=== PATIENT | male | born 1935 | race African-American/Black ===

== ENCOUNTER 2022-04-11 11:56 | Inpatient (IN) | payer MEDICARE ==
[~2022-04-11] VITALS: Ht 182.9 cm; Wt 85.3 kg
[2022-04-11] VITALS (10 sets, daily range): BP systolic 7–132
--- NOTE | 2022-04-11 11:56 | NUR ---
CODE EVERARDO CALLED AT 1154, SEE CODE SHEET FOR NOTES
[2022-04-11] MEDS ORDERED: SUCCINYLCHOLINE CHLORIDE 20 MG/ML(QUELICIN) ONE (12:00)
[2022-04-11] MEDS ORDERED: AMIODARONE HCL 150 MG/3ML VIAL ONE (12:00)
[2022-04-11] MEDS ORDERED: CALCIUM CHLORIDE 1 GM/10 ML DISP.SYRIN (14 mEq Ca++/SYR) ONE (12:00)
[2022-04-11] MEDS ORDERED: ATROPINE SULFATE 1 MG/10 ML SYRINGE IVP ONE (12:00)
[2022-04-11] MEDS ORDERED: EPINEPHrine JECT 0.1 MG/ML SYR ONE (12:00)
[2022-04-11] MEDS ORDERED: DEXTROSE 50% JECT 50 ML DISP.SYRIN ONE (12:00)
[2022-04-11] MEDS ORDERED: NS 1000 ML IV.SOLN IV ONE (12:00)
[2022-04-11] MEDS ORDERED: SODIUM BICARBONATE 8.4% JECT 50 MEQ/50 ML SYRINGE ONE ×2 (12:00→17:53)
[2022-04-11] MEDS ORDERED: DOPamine PREMIX 400 MG/250 ML BTL IV ONE (12:00)
[2022-04-11] MEDS ORDERED: ETOMIDATE 20 MG/ 10 ML VIAL (AMIDATE) ONE (12:00)
--- NOTE | 2022-04-11 12:00 | NUR ---
BROUGHT IN BY [facility], PLACED IN BED #5 AND TRIAGE STARTED. DURING TRIAGE, PT BECAME UNRESPONSIVE AND ALL STAFF CALLED TO BEDSIDE. LJ MCGEE CALLED AND DR NELSON AT BEDSIDE WITH RT, LAB AND PHARMACY.
--- NOTE | 2022-04-11 12:26 | NUR ---
FAXED EKG TO [facility] ER PER DR. NELSON
[2022-04-11] MEDS ORDERED: NOREPINEPHRINE BITARTRATE 4 MG in NS 246 ML IV ONE (12:45)
[2022-04-11 13:04] LABS: BASOPHILS % (AUTO) 0.9 % (0.0-2.0); EOSINOPHILS # (AUTO) 0.1 K/uL (0.0-0.4); EOSINOPHILS % (AUTO) 0.9 % (0.0-4.0); HEMATOCRIT 33.8 % (36-54); HEMOGLOBIN 10.5 g/dL (14.0-18.0); LYMPHOCYTES # (AUTO) 2.5 K/uL (1.0-5.5); LYMPHOCYTES % (AUTO) 45.1 % (20.5-51.5); MEAN CORPUSCULAR HEMOGLOBIN 27 pg (27-31); MEAN CORPUSCULAR HGB CONC 31 % (32-36); MEAN CORPUSCULAR VOLUME 86 fL (79.0-98.0); MONOCYTES # (AUTO) 0.1 K/uL (0.0-1.0); MONOCYTES % (AUTO) 2.4 % (1.7-9.3); NEUTROPHILS # (AUTO) 2.8 K/uL (1.8-7.7); NEUTROPHILS % (AUTO) 50.7 % (40.0-70.0); PLATELET COUNT (AUTO) 106 K/uL (130-430); RED BLOOD CELL COUNT(AUTO) 3.92 MIL/uL (4.2-6.2); RED CELL DISTRIBUTION WIDTH 16.5 % (9.0-15.0); WHITE BLOOD COUNT (AUTO) 5.5 K/uL (4.8-10.8)
[2022-04-11 13:20] LABS: ANION GAP 21 (5-15); CALCIUM 9.8 mg/dL (8.4-11.0); CHLORIDE 102 mmol/L (98-107); CREATININE 1.59 mg/dL (0.55-1.30); GLUCOSE 397 mg/dL (70-99); UREA NITROGEN, BLOOD 16 mg/dL (8-21)
[2022-04-11 13:27] LABS: ALANINE AMINOTRANSFERASE 505 U/L (12-78); ALBUMIN 2.9 g/dL (3.4-4.8); ASPARTATE AMINOTRANSFERASE 344 U/L (10-37); TOTAL BILIRUBIN 0.6 mg/dL (0.0-1.0)
[2022-04-11] MEDS ORDERED: DOPamine PREMIX 250 ML IV ONE (13:30)
--- NOTE | 2022-04-11 13:34 | NUR ---
DR NELSON OUT TO TRIAGE ROOM TO SPEAK WITH FAMILY.
[2022-04-11] MEDS ORDERED: iohexoL 350 mgI/mL, 100 ML INFUS..BTL IV ONE (13:45)
[2022-04-11] MEDS ORDERED: NOREPINEPHRINE 4 MG/4 ML VIAL IV ONE ×3 (14:01→16:12)
--- NOTE | 2022-04-11 14:32 | NUR ---
FAMILY BROUGHT INTO ER TO SEE PT. ALL QUESTIONS ANSWERED AND EXPLAINED.
--- NOTE | 2022-04-11 15:00 | NUR ---
# 20 FR León catheter with use of sterile technique. Immediate return of 25 cc YELLOW urine noted. Bedside drainage bag placed below level of bladder. Urine sample collected and sent to lab. Pt tolerated procedure WELL. Patient unable to toilet self.
[2022-04-11] MEDS ORDERED: NOREPINEPHRINE BITARTRATE 8 MG in NS 246 ML IV ONE (15:15)
--- NOTE | 2022-04-11 15:25 | NUR ---
DR HIDALGO INFORMED OF PT'S BP 73/46, CURRENTLY MAXED OUT ON LEVOPHED AND DOPAMINE. WAITING ON FURTHER ORDERS.
[2022-04-11] MEDS ORDERED: VASOPRESSIN 20 UNITS in NS 99 ML IV PRN ×2 (15:45→17:30)
--- NOTE | 2022-04-11 16:00 | NUR ---
Physician marked site for placement. Time out performed with all staff involved just prior to placement. RIGHT side chest cleansed with BETADINE per physician.# 28 FR chest tube placed to RIGHT side chest per DR. NELSON. Tubing sutured in place. Tubing taped to chest wall. Pleuravac connected to chest tube. BLOODY drainage noted to tubing. Pleuravac secured to floor with tape. Lung sounds auscultated over RIGHT chest wall. O2 sats 100% per pulse ox. Patient tolerated procedure WELL. PCXR done at bedside.
[2022-04-11] MEDS ORDERED: cefTRIAXone 2 GM VIAL ONE (16:12)
--- NOTE | 2022-04-11 16:22 | NUR ---
DR. MARROQUIN, [facility], CALLED BACK TO SPEAK TO DR. HICKS REGARDING PT STATUS.
[2022-04-11] MEDS ORDERED: ALBUMIN HUMAN 25% 100 ML IV ONE ×2 (16:25→16:30)
[2022-04-11] MEDS ORDERED: NACL 0.9% 1,000 ML IV ONE ×2 (16:30→17:00)
--- NOTE | 2022-04-11 16:30 | NUR ---
LATE ENTRY: RIGHT TRIPLE LUMEN CENTRAL LINE INSERTED BY DR HIDALGO WITH STERILE TECHNIQUE. CONFIRMED BY XRAY.
--- NOTE | 2022-04-11 16:35 | NUR ---
400ML BLOODY DRAINAGE FROM CHEST TUBE
[2022-04-11] MEDS ORDERED: DEXTROSE 50% JECT 50 ML DISP.SYRIN IVP PRN (16:45)
[2022-04-11] MEDS ORDERED: PROPOFOL DRIP 100 ML IV ONE (16:56)
[2022-04-11] MEDS ORDERED: *HEPARIN PER PHARMACY XX ONE (17:00)
[2022-04-11] MEDS ORDERED: PIPERACILLIN/TAZO 3.375 GM in NS 50 ML IV ONE (17:00)
[2022-04-11] MEDS: PROPOFOL DRIP 100 ML IV PRN (17:04)
[2022-04-11] MEDS ORDERED: HEPARIN SODIUM,PORCINE 3000 UNITS/0.6 ML BOLUS IVP PRN (17:15)
[2022-04-11] MEDS ORDERED: HEPARIN SODIUM,PORCINE 2000 UNITS/0.4 ML BOLUS IVP PRN (17:15)
[2022-04-11] MEDS ORDERED: HEPARIN 25,000 UNITS in 250 ML PREMIX IV PRN (17:15)
[2022-04-11] MEDS ORDERED: HEPARIN SODIUM,PORCINE 5,000 UNITS/ML VIAL IV ONE (17:15)
--- NOTE | 2022-04-11 17:22 | NUR ---
pt arrived @ 1722 connected to monitor with CORA, LAURENCEX2. All gtts infusing, pt moved to bed from stretcher and connected to monitors in room. Dr. Agee @ bedside, orders to connect chest tube to low continuos suction, sanguineous drainage noted in chamber, also to give 2 amps of bicarb. Infusions all verified to be running @ rate per report from Majo DANG. Bilat radial and DP pulses 1+. 7.5 ETT secured 23 @ lip. Vent settings AC/VC Vt450, PEEP 5, FiO2 50%León catheter patent and draining dark gee urine with sediment. Pt also have 2 PIVs on right forearm flush and saline locked, and one PIV on left FA flushed and saline locked. Patient moves extremities spontaneously but not following commands. Pupils 5 and non reactive.Bilat upper and lower extremities cold and dry, skin also intact no bruising or edema noted.
--- NOTE | 2022-04-11 17:27 | NUR ---
RT NOTE: 1727 Patient transported from ER1 to ICU7 with vent. Patient tolerated well. Addendum: 04/11/22 at 1807 by Geni Evans RT Amended: Links added.
[2022-04-11] MEDS ORDERED: NOREPINEPHRINE BITARTRATE 8 MG in NS 242 ML IV PRN (17:30)
[2022-04-11 17:44] LABS: INR 1.2 (0.80-1.20)
--- NOTE | 2022-04-11 17:45 | NUR ---
Patient will be admitted to care of DR KAM. Admitted to ICU unit. Will go to room 7. Belongings list completed. Complete and up to date summary report printed. SBAR report to be given at bedside with opportunity for questions.
[2022-04-11] MEDS ORDERED: SODIUM BICARBONATE 8.4% JECT 50 MEQ/50 ML SYRINGE IVP ONE (18:00)
[2022-04-11] MEDS: INSULIN REGULAR, HUMAN 100 UNITS/ML, 3 ML VIAL (humuLIN R) SUBCUT PRN (18:21)
--- NOTE | 2022-04-11 19:14 | NUR ---
Report given to Maira DANG
--- NOTE | 2022-04-11 19:30 | NUR ---
When assessing patient, patients SBP decreased to 60's. Titrated per protocol to max on all pressers ordered at that time. Patient alert and able to answer yes and no questions. Patient able to follow commands. Patient appears anxious. Unable to increase sedation due to low BP. MD notified.
[2022-04-11] MEDS: NOREPINEPHRINE BITARTRATE 32 MG in NS 218 ML IV PRN (20:10)
--- NOTE | 2022-04-11 20:30 | NUR ---
Chest tube output 350 mL in 1.5 hours. MD Frederick notified. Per MD do not start heparin drip, give 1 unit PRBC quickly.
[2022-04-11 21:04] LABS: BASOPHILS % (AUTO) 0.2 % (0.0-2.0); EOSINOPHILS % (AUTO) 0.1 % (0.0-4.0); HEMATOCRIT 28.1 % (36-54); HEMOGLOBIN 8.8 g/dL (14.0-18.0); LYMPHOCYTES # (AUTO) 0.7 K/uL (1.0-5.5); LYMPHOCYTES % (AUTO) 10.5 % (20.5-51.5); MEAN CORPUSCULAR HEMOGLOBIN 27 pg (27-31); MEAN CORPUSCULAR HGB CONC 31 % (32-36); MEAN CORPUSCULAR VOLUME 86 fL (79.0-98.0); MONOCYTES # (AUTO) 0.3 K/uL (0.0-1.0); MONOCYTES % (AUTO) 4.2 % (1.7-9.3); NEUTROPHILS # (AUTO) 5.8 K/uL (1.8-7.7); PLATELET COUNT (AUTO) 139 K/uL (130-430); RED BLOOD CELL COUNT(AUTO) 3.27 MIL/uL (4.2-6.2); RED CELL DISTRIBUTION WIDTH 16.5 % (9.0-15.0); WHITE BLOOD COUNT (AUTO) 6.8 K/uL (4.8-10.8)
--- NOTE | 2022-04-11 21:15 | NUR ---
Dr. Cole bedside assessing patient. MD made aware of chest tube output and heparin hold. Per MD give 1L bolus LR.
[2022-04-11 21:20] LABS: ANION GAP 22 (5-15); CALCIUM 8.5 mg/dL (8.4-11.0); CHLORIDE 103 mmol/L (98-107); CREATININE 2.56 mg/dL (0.55-1.30); GLUCOSE 380 mg/dL (70-99); UREA NITROGEN, BLOOD 24 mg/dL (8-21)
[2022-04-11] MEDS ORDERED: LR 1,000 ML IV ONE (22:30)
--- NOTE | 2022-04-11 23:00 | NUR ---
Patients daughter called for updated. All questions answered.
--- NOTE | 2022-04-11 23:15 | NUR ---
Dr. Frederick bedside. Informed patient complaint of pain in right lower chest. Per MD no new orders.
[2022-04-11] MEDS ORDERED: PANTOPRAZOLE SODIUM 40 MG/VIAL (PROTONIX) IVP ONE (23:45)
[2022-04-12] VITALS (49 sets, daily range): BP systolic 70–130
[2022-04-12] MEDS ORDERED: VASOPRESSIN 20 UNITS/ML VIAL IV ONE ×2 (00:40→13:59)
[2022-04-12] MEDS: PROPOFOL DRIP 100 ML IV PRN ×4 (01:02→23:29)
[2022-04-12] MEDS: DOPamine PREMIX 250 ML IV PRN ×5 (01:03→18:59)
[2022-04-12] MEDS: PHENYLEPHRINE HCL 100 MG in NS 240 ML IV PRN ×4 (01:04→15:32)
[2022-04-12] MEDS: NOREPINEPHRINE BITARTRATE 32 MG in NS 218 ML IV PRN ×4 (01:04→15:30)
[2022-04-12] MEDS: INSULIN REGULAR, HUMAN 100 UNITS/ML, 3 ML VIAL (humuLIN R) SUBCUT PRN ×2 (01:07→04:54)
[2022-04-12 02:38] LABS: ANION GAP 21 (5-15); CALCIUM 8.3 mg/dL (8.4-11.0); CHLORIDE 104 mmol/L (98-107); CREATININE 2.67 mg/dL (0.55-1.30); GLUCOSE 358 mg/dL (70-99); UREA NITROGEN, BLOOD 27 mg/dL (8-21)
--- NOTE | 2022-04-12 03:15 | NUR ---
Critical value from lab, Trop [id number]. Dr. Latrice Sherman notified. No new orders.
--- NOTE | 2022-04-12 07:00 | NUR ---
received report from Maira DANG, verified gtts and rates. Pt's daughter and son in law @ bedside, updated and answered all questions. Pt's daughter and son in law left bedside @ approximately 0930.
[2022-04-12] MEDS: PANTOPRAZOLE SODIUM 40 MG/VIAL (PROTONIX) IVP SCH ×2 (09:53→22:18)
[2022-04-12 10:01] LABS: BASOPHILS % (AUTO) 0.2 % (0.0-2.0); EOSINOPHILS % (AUTO) 0.2 % (0.0-4.0); HEMATOCRIT 40.5 % (36-54); HEMOGLOBIN 12.7 g/dL (14.0-18.0); LYMPHOCYTES # (AUTO) 1.7 K/uL (1.0-5.5); LYMPHOCYTES % (AUTO) 14.6 % (20.5-51.5); MEAN CORPUSCULAR HEMOGLOBIN 28 pg (27-31); MEAN CORPUSCULAR HGB CONC 31 % (32-36); MEAN CORPUSCULAR VOLUME 90 fL (79.0-98.0); MONOCYTES # (AUTO) 0.5 K/uL (0.0-1.0); MONOCYTES % (AUTO) 4.2 % (1.7-9.3); NEUTROPHILS # (AUTO) 9.2 K/uL (1.8-7.7); NEUTROPHILS % (AUTO) 80.8 % (40.0-70.0); PLATELET COUNT (AUTO) 96 K/uL (130-430); RED BLOOD CELL COUNT(AUTO) 4.48 MIL/uL (4.2-6.2); RED CELL DISTRIBUTION WIDTH 16.4 % (9.0-15.0); WHITE BLOOD COUNT (AUTO) 11.4 K/uL (4.8-10.8)
[2022-04-12 10:08] LABS: ANION GAP 25 (5-15); CALCIUM 8.3 mg/dL (8.4-11.0); CHLORIDE 104 mmol/L (98-107); GLUCOSE 250 mg/dL (70-99); UREA NITROGEN, BLOOD 31 mg/dL (8-21)
[2022-04-12 10:17] LABS: ALANINE AMINOTRANSFERASE 1269 U/L (12-78); ALBUMIN 2.7 g/dL (3.4-4.8); ASPARTATE AMINOTRANSFERASE 871 U/L (10-37); CHOLESTEROL 83 mg/dL (<200); HDL CHOLESTEROL 59 mg/dL (>45); PHOSPHORUS 5.3 mg/dL (2.7-4.5); TOTAL BILIRUBIN 1.2 mg/dL (0.0-1.0); TRIGLYCERIDES 198 mg/dL (30-150)
--- NOTE | 2022-04-12 10:25 | NUR ---
[place] [address], paged Dr. Sherman, he returned the call @ 1030 with no new orders , as results are trending down
--- NOTE | 2022-04-12 10:26 | NUR ---
SPOKE WITH LIBRADO REQUESTING ORDERS FROM DR. Latrice GALVAN.
--- NOTE | 2022-04-12 11:11 | NUR ---
SPOKE WITH MICHEL CONCERNING NEW CONSULT FOR DR. HATCH ORDERED BY DR. KAM REGARDING RENAL FAILURE.
[2022-04-12] MEDS ORDERED: NACL 0.9% 1,000 ML IV ONE (11:15)
[2022-04-12] MEDS ORDERED: PIPERACILLIN/TAZO 2.25G/DEX-IS 50 ML IV SCH (12:00)
[2022-04-12] MEDS ORDERED: NACL 0.9% 1,000 ML IV SCH (12:30)
[2022-04-12] MEDS: PIPERACILLIN/TAZO 2.25G/DEX-IS 50 ML IV SCH ×2 (13:13→17:20)
--- NOTE | 2022-04-12 14:30 | NUR ---
SPOKE TO MD HATCH, NEPHROLOGY. MADE AWARE OF NEW CONSULT FOR RENAL FAILURE. GIVEN LAB RESULTS, CREATININE AND BUN. MD TO SEE PT.
--- NOTE | 2022-04-12 16:15 | NUR ---
Dr. Rivero @ bedside, orders to decrease NS to 100ml/hr from 200ml/hr. Verified gtts and rates, notified of bleeding around chest tube insertion site, no concern as chest xray verified correct placement of tube. Plan is to continue current plan of care. Also notified of decreased urine output, no concern. Dr. Rivero also update best friend Woodrow who has been at bedside all afternoon.
[2022-04-12] MEDS ORDERED: CARVEDILOL 3.125 MG TABLET (COREG) PO ONE (17:00)
[2022-04-12] MEDS ORDERED: cefTRIAXone 1 GM in D5W 50 ML IV SCH (17:00)
--- NOTE | 2022-04-12 17:03 | NUR ---
photovoltaic testing technician @ bedside to perform ultrasound of lower extrem to rule out DVT per orders from Dr. Frederick
[2022-04-12 18:25] LABS: ANION GAP 26 (5-15); CALCIUM 7.3 mg/dL (8.4-11.0); CHLORIDE 105 mmol/L (98-107); CREATININE 3.68 mg/dL (0.55-1.30); GLUCOSE 132 mg/dL (70-99); UREA NITROGEN, BLOOD 35 mg/dL (8-21)
--- NOTE | 2022-04-12 19:20 | NUR ---
Report received from Kayla. Kraus, patients friend bedside and staying the night.
[2022-04-12] MEDS ORDERED: SODIUM BICARBONATE 8.4% JECT 50 MEQ/50 ML SYRINGE IVP ONE (19:30)
[2022-04-12] MEDS ORDERED: SODIUM BICARBONATE 8.4% VIAL 50 MEQ/50 ML VIAL ONE ×2 (19:36→21:38)
[2022-04-12 20:24] LABS: HEMATOCRIT 32.1 % (36-54); HEMOGLOBIN 10.6 g/dL (14.0-18.0); MEAN CORPUSCULAR HEMOGLOBIN 29 pg (27-31); MEAN CORPUSCULAR HGB CONC 33 % (32-36); MEAN CORPUSCULAR VOLUME 88 fL (79.0-98.0); PLATELET COUNT (AUTO) 81 K/uL (130-430); RED BLOOD CELL COUNT(AUTO) 3.64 MIL/uL (4.2-6.2); RED CELL DISTRIBUTION WIDTH 16.1 % (9.0-15.0)
[2022-04-12] MEDS ORDERED: SODIUM BICARBONATE 8.4% VIAL 150 MEQ in D5W 1,000 ML IV SCH (20:30)
--- NOTE | 2022-04-12 20:30 | NUR ---
Patients SBP in 70's. Dr. Cole notified. Per try 1L bolus.
--- NOTE | 2022-04-12 20:31 | NUR ---
Per Dr. Cole, start heparin drip.
[2022-04-12] MEDS ORDERED: HEPARIN 25,000 UNITS/D5W 250ML 250 ML IV ONE (20:33)
[2022-04-12] MEDS ORDERED: LACTOBACILLUS RHAMNOSUS GG 1 CAP CAPSULE PO SCH (21:00)
[2022-04-12] MEDS ORDERED: HEPARIN 25,000 UNITS/D5W 250ML 250 ML IV PRN ×2 (21:45→23:15)
[2022-04-12 21:55] LABS: BAND % (MANUAL) 50 % (0-6); LYMPHOCYTES % (MANUAL) 16 % (20-46)
[2022-04-12 21:56] LABS: BASOPHILS % (MANUAL) 0 % (0-2); EOSINOPHILS % (MANUAL) 0 % (0-7); METAMYELOCYTES % 2 % (0-0); MONOCYTES % (MANUAL) 10 % (0-11)
[2022-04-12] MEDS ORDERED: LR 1,000 ML IV ONE ×2 (22:00→23:00)
[2022-04-13] VITALS (8 sets, daily range): BP systolic 64–91
[2022-04-13] MEDS: DOPamine PREMIX 250 ML IV PRN ×2 (00:03→04:22)
[2022-04-13] MEDS: PHENYLEPHRINE HCL 100 MG in NS 240 ML IV PRN (00:04)
[2022-04-13 00:07] LABS: BASOPHILS % (AUTO) 0.2 % (0.0-2.0); EOSINOPHILS # (AUTO) 0.1 K/uL (0.0-0.4); EOSINOPHILS % (AUTO) 1.1 % (0.0-4.0); HEMATOCRIT 32.5 % (36-54); HEMOGLOBIN 10.1 g/dL (14.0-18.0); LYMPHOCYTES # (AUTO) 1.5 K/uL (1.0-5.5); LYMPHOCYTES % (AUTO) 12.8 % (20.5-51.5); MEAN CORPUSCULAR HEMOGLOBIN 29 pg (27-31); MEAN CORPUSCULAR HGB CONC 31 % (32-36); MEAN CORPUSCULAR VOLUME 93 fL (79.0-98.0); MONOCYTES # (AUTO) 0.5 K/uL (0.0-1.0); MONOCYTES % (AUTO) 4.7 % (1.7-9.3); NEUTROPHILS # (AUTO) 9.3 K/uL (1.8-7.7); NEUTROPHILS % (AUTO) 81.2 % (40.0-70.0); PLATELET COUNT (AUTO) 69 K/uL (130-430); RED BLOOD CELL COUNT(AUTO) 3.48 MIL/uL (4.2-6.2); RED CELL DISTRIBUTION WIDTH 16.3 % (9.0-15.0); WHITE BLOOD COUNT (AUTO) 11.4 K/uL (4.8-10.8)
--- NOTE | 2022-04-13 01:44 | NUR ---
Dr. Cole notified patient platelets 69. Per MD continue with heparin drip.
[2022-04-13] MEDS ORDERED: LR 500 ML IV ONE (01:45)
--- NOTE | 2022-04-13 01:45 | NUR ---
Patients SBP dropped into 70's. MD Cole notified. Per give 500 bolus. All other options exhausted.
[2022-04-13] MEDS: PIPERACILLIN/TAZO 2.25G/DEX-IS 50 ML IV SCH (02:11)
--- NOTE | 2022-04-13 03:07 | NUR ---
Patient BP not maintaining. Curent BP 75/39(51). Notified patients daughter Annika. Explained situation.
[2022-04-13] MEDS: NOREPINEPHRINE BITARTRATE 32 MG in NS 218 ML IV PRN (03:23)
--- NOTE | 2022-04-13 05:30 | NUR ---
Patients daughter Annika called and notified of fathers passing. Per Annika she will notify her sister.
--- NOTE | 2022-04-13 05:31 | NUR ---
RT NOTES. PT CODED @0510. BAGGED VIA AMBU BAG W/ 100% FI02. WHILE ADEQUATE COMPRESSIONS WERE BEING DELIVERED.
--- NOTE | 2022-04-13 05:32 | NUR ---
[facility]
--- NOTE | 2022-04-13 06:20 | NUR ---
Patient coded at 0510. Code called and compressions initiated immediately. Team arrived 0511. Time of called at 0522.
[2022-04-13] MEDS ORDERED: HEPARIN SODIUM,PORCINE 2000 UNITS/0.4 ML BOLUS IVP PRN (06:30)
[2022-04-13] MEDS ORDERED: HEPARIN SODIUM,PORCINE 3000 UNITS/0.6 ML BOLUS IVP PRN (06:30)
[2022-04-13] MEDS ORDERED: CARVEDILOL 3.125 MG TABLET (COREG) PO SCH (09:00)
--- NOTE | 2022-04-13 09:54 | NUR ---
Telephone call made to the daughter, Joyce ([phone]), to inquire about the family's choice in mortuary. Per Joyce, the family has chosen to use [facility] in [place]. The daughter has already spoken to the mortuary to make arrangements to have the body picked up. Per daughter, she still needs to sign for the release of the body, which she will do online once she receives the email. I called and spoke with Jane at [facility]. Upon receiving the consent to release the body, the care team will call the hospital to give an ETA on the retail field supervisor time. Direct contact information for the nurse was provided to the nurse. LAURENCE St was made aware of the status and provided the contact information for the mortuary as well. [facility]: [phone]
--- NOTE | 2022-04-13 13:35 | NUR ---
MORTUARY BODY RELEASED TO [facility] IN [place].
[2022-04-13] MEDS ORDERED: EPINEPHrine JECT 0.1 MG/ML SYR IVP ONE (15:02)
[2022-04-13] MEDS ORDERED: SODIUM BICARBONATE 8.4% JECT 50 MEQ/50 ML SYRINGE IVP ONE (15:02)
== END 2022-04-13 05:22 | DRG 208 ==
LOC: SED 11:56 → SIC 16:38
PROVIDERS: ADMIT Internal Medicine; ATTEND Internal Medicine
PROC: 5A1945Z Respiratory Ventilation, 24-96 Consecutive Hours (ICD-10-PCS; principal; 2022-04-11)
PROC: 0BH17EZ Insertion of Endotracheal Airway into Trachea, Via Natural or Artificial Opening (ICD-10-PCS; 2022-04-11)
PROC: 02HV33Z Insertion of Infusion Device into Superior Vena Cava, Percutaneous Approach (ICD-10-PCS; 2022-04-11)
PROC: B548ZZA Ultrasonography of Superior Vena Cava, Guidance (ICD-10-PCS; 2022-04-11)
PROC: 0W9930Z Drainage of Right Pleural Cavity with Drainage Device, Percutaneous Approach (ICD-10-PCS; 2022-04-11)
PROC: 5A12012 Performance of Cardiac Output, Single, Manual (ICD-10-PCS; 2022-04-11)
PROC: 30233N1 Transfusion of Nonautologous Red Blood Cells into Peripheral Vein, Percutaneous Approach (ICD-10-PCS; 2022-04-11)
DX: J96.01 Acute respiratory failure with hypoxia (principal); I26.99 Other pulmonary embolism without acute cor pulmonale; N17.0 Acute kidney failure with tubular necrosis; K72.00 Acute and subacute hepatic failure without coma; I31.9 Disease of pericardium, unspecified; J93.9 Pneumothorax, unspecified; D62 Acute posthemorrhagic anemia; E78.5 Hyperlipidemia, unspecified; I46.9 Cardiac arrest, cause unspecified; E11.9 Type 2 diabetes mellitus without complications; I10 Essential (primary) hypertension
CPT/HCPCS: 36415; 36600; 70450-TC; 71045; 71275; 72191; 74175; 76376; 80048; 80053; 80061; 82140; 82803-TC; 82962; 83605; 83735; 83880; 84100; 84484; 85007; 85025; 85027; 85610-TC; 85730-TC; 86886; 86900; 86901; 86920; 87081; 92950; 93005; 93306; 93970; 94003; 94640; 94760; 99291; C9113; J0171; J0282; J0330; J0461; J0696; J1265; J1644; J1815; J2370; J2543; J2704; J3490; J7030; J7050; J7060; P9021; Q9967